=== PATIENT | female | born 1965 | race Caucasian/White ===

== ENCOUNTER 2019-08-19 09:46 | Inpatient (IN) ==
[2019-08-19 10:22] LABS: Hemoglobin 15.2 gm/dL (12.5-16.0); Mean Cell Volume 93.8 fl (78-100); Mean Corpuscular Hemoglobin 31.7 pg (27-31); Mean Corpuscular Hgb Conc 33.8 g/dl (32-36); Mean Platelet Volume 10.1 fl (8-12.5); Neutrophil # 5.5 K/mm3 (1.3-6.0); Neutrophil % 69.3 % (42-75.0); Platelet Count 264 K/mm3 (150-450); Red Cell Distribution Width 12.9 % (11.5-14.0)
[2019-08-19] MEDS ORDERED: ENOXAPARIN SODIUM 100 MG/ML SYRG SC ONE ×2 (10:36→10:42)
[2019-08-19 10:40] LABS: INR 1.12 INR (0.92-1.08); Partial Thrombolplastin Time 22.5 Seconds (24-32)
[2019-08-19] MEDS ORDERED: ENOXAPARIN SODIUM 30 MG/0.3 ML SYRG SC ONE (10:42)
[2019-08-19] MEDS ORDERED: WARFARIN SODIUM 10 MG TABLET PO ONE (10:45)
[2019-08-19 10:46] LABS: Troponin I Less than 0.017 ng/mL (0.00-0.10)
[2019-08-19 10:48] LABS: ALT 10 U/L (19-67); AST 17 U/L (0-48); Albumin * 3.7 gm/dl (3.4-5.0); Alkaline Phosphatase * 60 U/L (50-170); Anion Gap 15.3 mmol/L (6.8-13.8); BNP * 126 pg/mL (5-205); BUN/Creatinine Ratio 31.9 (9.0-21.6); Bilirubin, Total 0.6 mg/dL (0.0-1.1); Blood Urea Nitrogen 53 mg/dL (3-23); Calcium * 9.1 mg/dL (7.9-10.9); Carbon Dioxide 29.1 mmol/L (24-32.6); Chloride 96 mmol/L (97-106); Glucose * 156 mg/dL (70-110); Potassium 3.4 mmol/L (3.4-4.6); Sodium 137 mmol/L (132-142); Total Protein 8.4 gm/dL (6.2-8.2)
--- NOTE | 2019-08-19 11:01 | ERNOTE ---
Dyspnea - General Presenting Symptoms: shortness of breath Time Seen by Provider: 08/19/19 10:24 Source: patient Exam Limitations: no limitations - Immun/Allergies/Home Medications Immunizations: IMMUNIZATION HX Immunizations Up to Date No History of Influenza Vaccine Yes Hx Pneumococcal Vaccination No Allergies/Adverse Reactions: Allergies acetaminophen [From Vicodin] Allergy (Severe, Verified 08/19/19 10:04) Anaphylaxis, stops breathing hydrocodone bitartrate [From Vicodin] Allergy (Severe, Verified 08/19/19 10:04) Anaphylaxis, stops breathing aspirin Allergy (Intermediate, Verified 08/19/19 10:04) HIVES, FACE SWELLS, HIGH FEVER vancomycin Allergy (Mild, Verified 08/19/19 10:04) Hives duloxetine Adverse Reaction (Mild, Verified 08/19/19 10:04) SORES IN MOUTH, STOMACH PAIN Home Medications: HOME MEDICATIONS Sertraline HCl [Zoloft] 100 mg PO DAILY 10/27/12 [Last Taken 08/19/19] Colestipol HCl [Colestid] 1 g PO DAILY 05/29/15 [Last Taken 11/12/16] Diclofenac Sodium 75 mg PO BID 05/29/15 [Last Taken 08/19/19] Gabapentin 300 mg PO TID 05/29/15 [Last Taken 08/19/19] Omeprazole [Prilosec] 20 mg PO DAILY PRN 05/29/15 [Last Taken 11/12/16] Baclofen 20 mg PO HS 11/06/16 [Last Taken 08/18/19] Cholecalciferol [Vitamin D] 1,000 unit PO HS 11/06/16 [Last Taken 11/12/16] Cyanocobalamin (Vitamin B-12) [Vitamin B-12] 500 mcg PO HS 11/06/16 [Last Taken 11/12/16] Fexofenadine HCl [Kylah Allergy] 180 mg PO DAILY PRN 11/06/16 [Last Taken 11/12/16] Levothyroxine Sodium [Synthroid] 150 mcg PO DAILY 11/06/16 [Last Taken 08/19/19] Furosemide [Lasix] 40 mg PO DAILY 08/19/19 [Last Taken 08/19/19] Metoprolol Succinate 75 mg PO HS 08/19/19 [Last Taken Unknown] - History of Present Illness Narrative: Patient has been having shortness of breath for the past several weeks and underwent a variety of tests including an echocardiogram, a NANCY and a CTA of the chest today. Severity: moderate Initiating event: Reports: none Frequency of episodes: Reports: no prior episodes Modifying Factors - (Improves): Reports: nothing Modifying Factors (Worsens): Reports: activity Associated Symptoms-Dyspnea: Reports: denies symptoms Prior Treatment: Reports: recently seen, treated by physician Review of Systems - Review of Systems Constitutional: Present: See HPI EYE: Present: no symptoms reported ENT: Present: no symptoms reported Respiratory: Present: See HPI Cardiology: Present: no symptoms reported Gastrointestinal/Abdominal: Present: no symptoms reported Genitourinary: Present: no symptoms reported Musculoskeletal: Present: no symptoms reported Skin: Present: no symptoms reported Neurological: Present: no symptoms reported Endocrine: Present: no symptoms reported Hematologic/Lymphatic: Present: no symptoms reported Psych: Present: no symptoms reported Medical History (Updated 08/19/19 @ 10:04 by Nina Gilliland RN) Pulmonary embolism 08/19/2019 ADD (attention deficit disorder) Onset Date: Unknown Allergic rhinitis Onset Date: Unknown CHF (congestive heart failure) Onset Date: Unknown Cervical disc disorder with radiculopathy Onset Date: Unknown mid cervical region Chest pain Onset Date: Unknown Depression Onset Date: Unknown Essential hypertension Onset Date: Unknown Fibromyalgia Onset Date: Unknown Hyperlipidemia Onset Date: Unknown Hypothyroidism Onset Date: Unknown Incomplete tear of right rotator cuff Onset Date: 02/02/17 Joint pain Onset Date: Unknown Left ventricular hypertrophy Onset Date: Unknown Lumbago with sciatica, unspecified side Onset Date: Unknown Obesity Onset Date: Unknown Obstructive sleep apnea Onset Date: Unknown Osteoarthritis Onset Date: Unknown Palpitations Onset Date: Unknown Peripheral edema Onset Date: Unknown Plantar fasciitis Onset Date: Unknown Rotator cuff tear, right Onset Date: 11/13/16 Shingles Onset Date: 09/2016 Surgical History: Surgical History (Updated 11/25/18 @ 09:06 by Luiza Sweeney) H/O abdominal hysterectomy Onset Date: 06/1995 H/O section Onset Date: 08/1993, 08/1991, 08/1993 H/O colonoscopy Onset Date: Unknown normal Dr Garcia History of repair of rotator cuff Onset Date: 11/13/16 arthroscopy with mini open Dr. Leggett, right History of total right knee replacement (TKR) Onset Date: 2011 Dr Tavares [facility] Hx laparoscopic cholecystectomy Onset Date: 03/30/00 Dr Ross Family History: Family History (Updated 10/12/18 @ 07:32 by Siomara Lord) Mother , age 80 Heart disease Hypertension Gout Glaucoma Aneurysm Arthritis Father , age 75 Hypertension Myocardial infarction Cancer lung Brother Alive and well Sister Brain tumor Sister CHF (congestive heart failure) Cancer ovarian Sister pre cancer cervix Aunt Diabetes Uncle Diabetes Social History: (Last Reviewed 08/19/19 @ 10:04 by Nina Gilliland RN) Social History: Marital status: household members: spouse 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 Service: No Tobacco: Smoking Status: Never smoker Alcohol: alcohol intake: current details: rarely Substance Use: substance use type: does not use Dietary Habits: caffeine: Yes caffeine comment: sodas 2 per week, 1 cup coffee Type: carbonated beverages, coffee Physical Exam - Physical Exam General Appearance: Present: wd/wn, alert, mild distress Head Exam: Present: normal inspection, no evidence of injury Eye Exam: Normal inspection: bilateral, PERRL: bilateral Ears, Nose, Throat: Present: normal ENT inspection, H, normal pharynx Neck: Present: normal inspection, nontender Respiratory: Present: normal breath sounds, no accessory muscle use, chest nontender, lungs clear, respiratory distress Cardiovascular/Chest: Present: no murmur, normal peripheral pulses, bradycardia Gastrointestinal/Abdominal: Present: normal bowel sounds, nontender, nondistended, soft, no organomegaly Rectal Exam: Present: deferred Back Exam: Present: normal inspection, normal range of motion Extremity Exam: Present: normal inspection, non-tender, no edema, normal range of motion Neurological Exam: Present: alert, oriented, normal mood/affect Skin Exam: Present: normal color, warm/dry Lymphatic Exam: Present: no adenopathy Progress - Results and Orders Patient's Lab Results:: I have reviewed the patient's lab results. - Vital Signs Patient's Vital Signs:: I have reviewed the patient's vital signs. Vital Signs: Vital Signs 08/19/19 09:59 08/19/19 10:10 Temperature 36.7 C Pulse Rate 50 L 49 L Respiratory Rate 13 15 Blood Pressure 129/46 105/47 O2 Sat by Pulse Oximetry 95 95 - CT/Ultrasound CT/Ultrasound Narrative: CTA of the chest was reviewed by me - Progress/Reassessment Chief Complaint: Dyspnea - Transfer of Care Expected Disposition: Admit Plan - Plan Plan: Fortunately the patient is already undergone both an echocardiogram and a NANCY of the chest. Patient will be admitted to an observation bed so we can get her anticoagulated. Dr. Finn is agreed to admit the patient to an overnight bed. Departure Clinical Impression: Pulmonary embolus Qualifiers: Pulmonary embolism type: unspecified Chronicity: acute Acute cor pulmonale presence: without acute cor pulmonale Qualified Code(s): I26.99 - Other pulmonary embolism without acute cor pulmonale - Departure Disposition: Still a patient Condition: Fair Referrals: Eva Shine, JUNIOR ART DIRECTOR [Primary Care Provider] -
[2019-08-19] MEDS ORDERED: LORATADINE 10 MG TABLET PO PRN (14:00)
[2019-08-19] MEDS ORDERED: PANTOPRAZOLE SODIUM 20 MG TABLET.DR PO PRN (14:00)
[2019-08-19] MEDS ORDERED: ENOXAPARIN SODIUM 40 MG/0.4 ML SYRG SC SCH ×2 (14:15→22:45)
--- NOTE | 2019-08-19 14:42 | HP ---
Chief Complaint - Chief Complaint Date of Service: 08/19/19 Time of Service: 13:45 Chief Complaint: multiple pulmonary emboli, dyspnea at rest, O2 dependency, worsing renal failure History of Present Illness: Jessica Brand is a 53-year-old morbidly obese female who presented to the ER with dyspnea at rest. She was diagnosed with multiple PE per CT chest with PE protocol. She has had a left lower extremity venous Doppler done 3 days ago which did show some clot in the gastrocnemius vein but no DVT otherwise. She has had tenderness in the calf and in the left medial distal thigh in the area of the greater saphenous vein. Homans is positive. She is much more comfortable since being placed on oxygen. There is been some slight worsening of her renal status. There is no evidence of infection. She had been placed on levofloxacin. There is no indication of infection so it will be discontinued. She is also on diclofenac for arthritis and that also will be held. She arrives much more comfortable being on oxygen. Medical History (Updated 08/19/19 @ 11:01 by Rai Fox DO) Pulmonary embolism 08/19/2019 ADD (attention deficit disorder) Onset Date: Unknown Allergic rhinitis Onset Date: Unknown CHF (congestive heart failure) Onset Date: Unknown Cervical disc disorder with radiculopathy Onset Date: Unknown mid cervical region Chest pain Onset Date: Unknown Depression Onset Date: Unknown Essential hypertension Onset Date: Unknown Fibromyalgia Onset Date: Unknown Hyperlipidemia Onset Date: Unknown Hypothyroidism Onset Date: Unknown Incomplete tear of right rotator cuff Onset Date: 02/02/17 Joint pain Onset Date: Unknown Left ventricular hypertrophy Onset Date: Unknown Lumbago with sciatica, unspecified side Onset Date: Unknown Obesity Onset Date: Unknown Obstructive sleep apnea Onset Date: Unknown Osteoarthritis Onset Date: Unknown Palpitations Onset Date: Unknown Peripheral edema Onset Date: Unknown Plantar fasciitis Onset Date: Unknown Rotator cuff tear, right Onset Date: 11/13/16 Shingles Onset Date: 09/2016 Surgical History: Surgical History (Updated 11/25/18 @ 09:06 by Luiza Sweeney) H/O abdominal hysterectomy Onset Date: 06/1995 H/O section Onset Date: 08/1993, 08/1991, 08/1993 H/O colonoscopy Onset Date: Unknown normal Dr Garcia History of repair of rotator cuff Onset Date: 11/13/16 arthroscopy with mini open Dr. Leggett, right History of total right knee replacement (TKR) Onset Date: 2011 Dr Tavares [facility] Hx laparoscopic cholecystectomy Onset Date: 03/30/00 Dr Ross Family History: Family History (Updated 10/12/18 @ 07:32 by Siomara Lord) Mother , age 80 Heart disease Hypertension Gout Glaucoma Aneurysm Arthritis Father , age 75 Hypertension Myocardial infarction Cancer lung Brother Alive and well Sister Brain tumor Sister CHF (congestive heart failure) Cancer ovarian Sister pre cancer cervix Aunt Diabetes Uncle Diabetes Social History: (Last Reviewed 08/19/19 @ 12:13 by Valeria Sawant RN) Social History: Marital status: household members: spouse 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 Service: No Tobacco: Smoking Status: Never smoker Alcohol: alcohol intake: current details: rarely Substance Use: substance use type: does not use Dietary Habits: caffeine: Yes caffeine comment: sodas 2 per week, 1 cup coffee Type: carbonated beverages, coffee Review Of Systems (GEN) - Review of Systems Generalized/Overall Review: Present: Malaise EENTM: Present: No Symptoms Reported Respiratory: Present: Shortness of Breath Cardiac: Present: No Symptoms Reported Abdominal: Present: No Symptoms Reported Genitourinary: Present: No Symptoms Reported Musculoskeletal: Present: No Symptoms Reported Neurological: Present: No Symptoms Reported Skin: Present: No Symptoms Reported Endocrine: Present: No Symptoms Reported Immunizations: IMMUNIZATION HX Immunizations Up to Date No History of Influenza Vaccine Yes Hx Pneumococcal Vaccination No Allergies/Adverse Reactions: Allergies Allergy/AdvReac Type Severity Reaction Status Date / Time acetaminophen [From Vicodin] Allergy Severe Anaphylaxis, Verified 08/19/19 12:13 stops breathing hydrocodone bitartrate Allergy Severe Anaphylaxis, Verified 08/19/19 12:13 [From Vicodin] stops breathing aspirin Allergy Intermediate HIVES, Verified 08/19/19 12:13 FACE SWELLS, HIGH FEVER vancomycin Allergy Mild Hives Verified 08/19/19 12:13 duloxetine AdvReac Mild SORES IN Verified 08/19/19 12:13 MOUTH, STOMACH PAIN Home Medications: HOME MEDICATIONS Sertraline HCl [Zoloft] 100 mg PO DAILY 10/27/12 [Last Taken 08/19/19] Colestipol HCl [Colestid] 1 g PO DAILY 05/29/15 [Last Taken 11/12/16] Diclofenac Sodium 75 mg PO BID 05/29/15 [Last Taken 08/19/19] Gabapentin 300 mg PO TID 05/29/15 [Last Taken 08/19/19] Omeprazole [Prilosec] 20 mg PO DAILY PRN 05/29/15 [Last Taken 11/12/16] Baclofen 20 mg PO HS 11/06/16 [Last Taken 08/18/19] Cholecalciferol [Vitamin D] 1,000 unit PO DAILY 11/06/16 [Last Taken 11/12/16] Cyanocobalamin (Vitamin B-12) [Vitamin B-12] 500 mcg PO DAILY 11/06/16 [Last Taken 11/12/16] Fexofenadine HCl [Kylah Allergy] 180 mg PO DAILY PRN 11/06/16 [Last Taken 11/12/16] Levothyroxine Sodium [Synthroid] 150 mcg PO DAILY 11/06/16 [Last Taken 08/19/19] Furosemide [Lasix] 40 mg PO DAILY 08/19/19 [Last Taken 08/19/19] Levofloxacin [Levaquin] PO DAILY 08/19/19 [Last Taken Unknown] Metoprolol Succinate 75 mg PO HS 08/19/19 [Last Taken Unknown] Exam - Exam Vital Signs: Vital Signs - Last Taken Temp 36.7 C 08/19/19 11:29 Pulse 49 L 08/19/19 11:29 Resp 14 08/19/19 11:29 BP 103/40 08/19/19 11:29 Pulse Ox 94 08/19/19 11:29 Constitutional: Present: Alert, Oriented x3, Cooperative, Mild distress, Morbidly obese ENT Exam: Present: normal ENT inspection Eye Exam: bilateral eye: normal inspection, PERRL, EOMI Neck: Present: full range of motion, supple, normal inspection Back Exam: Present: normal inspection, no CVA tenderness, decreased range of motion Respiratory: Present: chest non-tender, lungs clear, normal breath sounds, respiratory distress - On room air but much more comfortable on oxygen Cardiovascular/Chest: Present: normal peripheral pulses, regular rate, rhythm, no chest tenderness, no edema, no gallop, no JVD, no murmur, no rub Peripheral Pulses: carotid (R): 2+, carotid (L): 2+, femoral (R): 2+, femoral (L): 2+, dorsalis-pedis (R): 2+, dorsalis-pedis (L): 2+, radial (R): 2+, radial (L): 2+ Abdomen: Present: Normal bowel sounds, soft, nontender, obese /Rectal: Present: Exam deferred Extremity: Present: normal capillary refill, calf tenderness, leg pain - In the posterior medial aspect of the left thigh in the distal one half. It is palpably tender and ropiness is felt.. 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 as tested, normal cerebellar test, no motor/sensory deficits, alert, normal mood/affect, oriented x 3 Appearance: Present: appropriate appearance, appropriate insight, neat, no memory impairment Eye contact: Present: cooperative, good eye contact, normal speech Thoughts: Present: normal thought pattern, no apparent hallucination Diagnostic Studies: Abnormal Lab Results 08/19/19 08/19/19 08/19/19 Range/Units 10:15 10:15 10:25 MCH 31.7 H (27-31) pg PT 11.0 H (9.1-10.7) Seconds INR (Anticoag Therapy) 1.12 H (0.92-1.08) INR PTT (Vic) 22.5 L (24-32) Seconds Chloride 96 L (97-106) mmol/L Anion Gap 15.3 H (6.8-13.8) mmol/L BUN 53 H D (3-23) mg/dL Creatinine 1.66 H (0.4-1.4) mg/dL Est GFR (Non-Af Amer) 34 L D (60-130) mL/min BUN/Creatinine Ratio 31.9 H (9.0-21.6) Random Glucose 156 H (70-110) mg/dL ALT 10 L (19-67) U/L Total Protein 8.4 H (6.2-8.2) gm/dL Laboratory Results WBC 8.0 K/mm3 (4.0-10.5) 08/19/19 10:15 RBC 4.80 M/mm3 (4.2-5.4) 08/19/19 10:15 Hgb 15.2 gm/dL (12.5-16.0) 08/19/19 10:15 Hct 45.0 % (37.0-47.0) 08/19/19 10:15 MCV 93.8 fl (78-100) 08/19/19 10:15 MCH 31.7 pg (27-31) H 08/19/19 10:15 MCHC 33.8 g/dl (32-36) 08/19/19 10:15 RDW 12.9 % (11.5-14.0) 08/19/19 10:15 Plt Count 264 K/mm3 (150-450) 08/19/19 10:15 MPV 10.1 fl (8-12.5) 08/19/19 10:15 Immature Gran % (Auto) 0.30 % (0.001-0.429) 08/19/19 10:15 Immature Gran # (Auto) 0.02 K/mm3 (0.000-0.0310) 08/19/19 10:15 69.3 % (42-75.0) 08/19/19 10:15 24.0 % (20-51) 08/19/19 10:15 4.6 % (0.0-9) 08/19/19 10:15 1.3 % (0.0-3.0) 08/19/19 10:15 0.5 % (0.0-1.0) 08/19/19 10:15 Nucleated RBC % 0.0 k/mm3 (0-1) 08/19/19 10:15 5.5 K/mm3 (1.3-6.0) 08/19/19 10:15 1.91 k/mm3 (1.5-3.5) 08/19/19 10:15 0.4 k/mm3 (0.0-1.0) 08/19/19 10:15 0.1 k/mm3 (0.0-0.7) 08/19/19 10:15 Absolute Basophils 0.0 k/mm3 (0.0-0.1) 08/19/19 10:15 PT 11.0 Seconds (9.1-10.7) H 08/19/19 10:25 INR (Anticoag Therapy) 1.12 INR (0.92-1.08) H 08/19/19 10:25 PTT (Vic) 22.5 Seconds (24-32) L 08/19/19 10:25 Sodium 137 mmol/L (132-142) 08/19/19 10:15 138 mmol/L (130-142) 08/19/19 10:15 Potassium 3.4 mmol/L (3.4-4.6) 08/19/19 10:15 Chloride 96 mmol/L (97-106) L 08/19/19 10:15 Carbon Dioxide 29.1 mmol/L (24-32.6) 08/19/19 10:15 15.3 mmol/L (6.8-13.8) H 08/19/19 10:15 BUN 53 mg/dL (3-23) H D 08/19/19 10:15 1.66 mg/dL (0.4-1.4) H 08/19/19 10:15 Est GFR (Non-Af Amer) 34 mL/min (60-130) L D 08/19/19 10:15 31.9 (9.0-21.6) H 08/19/19 10:15 156 mg/dL (70-110) H 08/19/19 10:15 Calcium 9.1 mg/dL (7.9-10.9) 08/19/19 10:15 Calcium Adj for Albumin 9.0 mg/dL (8.4-10.2) 08/19/19 10:15 Magnesium 2.2 mg/dL (1.2-2.8) 08/19/19 10:25 0.6 mg/dL (0.0-1.1) 08/19/19 10:15 AST 17 U/L (0-48) 08/19/19 10:15 ALT 10 U/L (19-67) L 08/19/19 10:15 60 U/L (50-170) 08/19/19 10:15 Less than 0.017 ng/mL (0.00-0.10) 08/19/19 10:15 B-Natriuretic Peptide 126 pg/mL (5-205) 08/19/19 10:15 8.4 gm/dL (6.2-8.2) H 08/19/19 10:15 3.7 gm/dl (3.4-5.0) 08/19/19 10:15 Assessment/Plan - Narrative Narrative: 1. Enoxaparin 1 mg/kg. She will actually receive 120 mg twice daily and the next dose will be at 1045 this evening. 2. Establish Coumadin to a therapeutic INR with goal of 2.0-3.0. 3. Discontinue levofloxacin 4. Hold diclofenac 5. Morning lab to include CBC, CMP, PT and INR. 6. Continue oxygen for now but PT to start working on weaning off oxygen tomorrow morning. - Assessment/Plan (1) Multiple pulmonary emboli Problem: Acute (2) Thrombophlebitis of left lower extremity Problem: Acute (3) Dyspnea Problem: Acute Qualifiers: Dyspnea type: shortness of breath Qualified Code(s): R06.02 - Shortness of breath; R06.00 - Dyspnea, unspecified; R06.01 - Orthopnea (4) Renal insufficiency Problem: Acute (5) Morbid obesity Problem: Chronic
[2019-08-19] MEDS: GABAPENTIN 300 MG CAPSULE PO SCH (16:54)
[2019-08-19] MEDS ORDERED: ACETAMINOPHEN 500 MG TABLET PO PRN ×2 (19:29→20:18)
[2019-08-19] MEDS ORDERED: ACETAMINOPHEN 500 MG TABLET PO ONE (20:16)
[2019-08-19] MEDS: METOPROLOL SUCCINATE 25 MG TABLET.SA PO SCH (20:45)
[2019-08-19] MEDS: BACLOFEN 10 MG TABLET PO SCH (20:45)
[2019-08-19] MEDS: ENOXAPARIN SODIUM SC SCH ×2 (23:04)
[2019-08-20 05:50] LABS: Hematocrit 45.8 % (37.0-47.0); Hemoglobin 15.1 gm/dL (12.5-16.0); Mean Cell Volume 94.4 fl (78-100); Mean Corpuscular Hemoglobin 31.1 pg (27-31); Mean Platelet Volume 10.3 fl (8-12.5); Neutrophil # 4.4 K/mm3 (1.3-6.0); Neutrophil % 45.6 % (42-75.0); Platelet Count 264 K/mm3 (150-450); Red Blood Count 4.85 M/mm3 (4.2-5.4); Red Cell Distribution Width 12.9 % (11.5-14.0); White Blood Count 9.5 K/mm3 (4.0-10.5)
[2019-08-20 05:58] LABS: Prothrombin Time (Patient) 11.7 Seconds (9.1-10.7)
[2019-08-20 06:06] LABS: Albumin * 3.6 gm/dl (3.4-5.0); Anion Gap 12.9 mmol/L (6.8-13.8); BUN/Creatinine Ratio 32.5 (9.0-21.6); Bilirubin, Total 0.5 mg/dL (0.0-1.1); Ca. Corrected For Albumin 9.1 mg/dL (8.4-10.2); Calcium * 9.1 mg/dL (7.9-10.9); Potassium 2.9 mmol/L (3.4-4.6); Total Protein 8.2 gm/dL (6.2-8.2)
[2019-08-20 06:18] LABS: INR 1.19 INR (0.92-1.08)
[2019-08-20] MEDS: LEVOTHYROXINE SODIUM 150 MCG TABLET PO SCH (07:02)
[2019-08-20] MEDS ORDERED: WARFARIN SODIUM 5 MG TABLET PO ONE (08:15)
[2019-08-20] MEDS ORDERED: POTASSIUM CHLORIDE 20 MEQ TABLET.SA PO ONE (08:17)
[2019-08-20] MEDS: POTASSIUM CHLORIDE 10 MEQ TABLET.SA PO SCH ×2 (09:19→18:37)
[2019-08-20] MEDS: SERTRALINE HCL 100 MG TABLET PO SCH (09:19)
[2019-08-20] MEDS: SPIRONOLACTONE 25 MG TABLET PO SCH (09:19)
[2019-08-20] MEDS: COLESTIPOL HCL 1 G TABLET PO SCH (09:20)
[2019-08-20] MEDS: FUROSEMIDE 40 MG TABLET PO SCH (09:20)
[2019-08-20] MEDS: CHOLECALCIFEROL 1,000 UNIT CAPSULE PO SCH (09:20)
[2019-08-20] MEDS: CYANOCOBALAMIN 1,000 MCG TABLET PO SCH (09:20)
[2019-08-20] MEDS: GABAPENTIN 300 MG CAPSULE PO SCH ×3 (09:20→18:37)
[2019-08-20] MEDS: ENOXAPARIN SODIUM SC SCH ×4 (10:45→22:05)
--- NOTE | 2019-08-20 10:47 | PN ---
Subjective - Date and Time Seen Date: 08/20/19 Time: 08:30 Subjective Narrative: Jessica Brand has had an uneventful night. She rested well on oxygen. She has not been successful in weaning off of her oxygen and desats to 88% on room air just sitting. Respiratory therapy will work with her to help wean her off of her oxygen. Her INR is only 1.2 this morning and so I will give her another 5 mg of warfarin this morning and then repeat that again this evening. In the meantime, she is getting Lovenox 120 mg subcu twice daily. She reports coughing and now starting to produce some green sputum. She will need a sputum for culture and sensitivity collected. Objective - Review of Systems Generalized/Overall Review: Reports: Weakness EENTM: Reports: No Symptoms Reported Respiratory: Reports: Cough Cardiac: Reports: No Symptoms Reported Abdominal: Reports: No Symptoms Reported Genitourinary Symptoms: Reports: No Symptoms Reported Musculoskeletal Complaints: Reports: Muscle Pain - In the left gastrocnemius and posterior medial left distal thigh Neurological: Reports: No Symptoms Reported Skin: Reports: No Symptoms Reported Endocrine: Reports: No Symptoms Reported - Vitals Vitals: Last Vital Signs Temp 36.3 C 08/20/19 10:25 Pulse 46 L 08/20/19 10:25 Resp 16 08/20/19 10:25 BP 119/65 08/20/19 10:25 Pulse Ox 97 08/20/19 10:25 - Abnormal Lab Findings Abnormal Lab Findings: Abnormal Lab Results 08/19/19 08/19/19 08/20/19 Range/Units 10:15 10:25 05:47 MCH 31.1 H (27-31) pg Lymphocytes # 4.08 H (1.5-3.5) k/mm3 PT 11.0 H (9.1-10.7) Seconds INR (Anticoag Therapy) 1.12 H (0.92-1.08) INR PTT ([place]) 22.5 L (24-32) Seconds Potassium (3.4-4.6) mmol/L Chloride 96 L (97-106) mmol/L Carbon Dioxide (24-32.6) mmol/L Anion Gap 15.3 H (6.8-13.8) mmol/L BUN 53 H D (3-23) mg/dL Creatinine 1.66 H (0.4-1.4) mg/dL Est GFR (Non-Af Amer) 34 L D (60-130) mL/min BUN/Creatinine Ratio 31.9 H (9.0-21.6) Random Glucose 156 H (70-110) mg/dL AST (0-48) U/L ALT 10 L (19-67) U/L Total Protein 8.4 H (6.2-8.2) gm/dL 08/20/19 08/20/19 Range/Units 05:47 05:47 MCH (27-31) pg Lymphocytes # (1.5-3.5) k/mm3 PT 11.7 H (9.1-10.7) Seconds INR (Anticoag Therapy) 1.19 H (0.92-1.08) INR PTT (Vic) (24-32) Seconds Potassium 2.9 L (3.4-4.6) mmol/L Chloride (97-106) mmol/L Carbon Dioxide 33.0 H (24-32.6) mmol/L Anion Gap (6.8-13.8) mmol/L BUN 40 H (3-23) mg/dL Creatinine (0.4-1.4) mg/dL Est GFR (Non-Af Amer) 48 L D (60-130) mL/min BUN/Creatinine Ratio 32.5 H (9.0-21.6) Random Glucose (70-110) mg/dL AST 60 H (0-48) U/L ALT 14 L (19-67) U/L Total Protein (6.2-8.2) gm/dL - EKG/Xray Findings XRAY: chest Interpretation: Reviewed by me - Exam Constitutional: Present: Alert, Oriented x3, Cooperative, Well developed, Well nourished, Morbidly obese ENT Exam: Present: normal ENT inspection, hearing grossly normal, pharynx normal, TMs normal Neck: Present: non-tender, full range of motion, supple Breasts: Present: Exam deferred Respiratory: Present: chest non-tender, lungs clear, normal breath sounds, no respiratory distress, no accessory muscle use - While on oxygen. She does become labored when on room air. 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 Give additional dose of Coumadin 5 mg this morning and repeat again this evening 2. Repeat morning lab with CBC, CMP, PT/INR 3. Continue to try to wean from supplemental oxygen. 4. Start back on potassium as it is down to 2.7 this morning and was 3.4 yesterday. - Problems/Diagnosis (1) Multiple pulmonary emboli Problem: Acute (2) Thrombophlebitis of left lower extremity Problem: Acute (3) Dyspnea Problem: Acute Qualifiers: Dyspnea type: shortness of breath Qualified Code(s): R06.02 - Shortness of breath; R06.00 - Dyspnea, unspecified; R06.01 - Orthopnea (4) Renal insufficiency Problem: Acute (5) Morbid obesity Problem: Chronic (6) Hypokalemia Problem: Acute
[2019-08-20 13:07] LABS: Anion Gap 15.2 mmol/L (6.8-13.8); BUN/Creatinine Ratio 31.4 (9.0-21.6); Calcium * 9.4 mg/dL (7.9-10.9); Carbon Dioxide 30.9 mmol/L (24-32.6); Estimated Creat Clear 48.5; Potassium 3.1 mmol/L (3.4-4.6)
[2019-08-20] MEDS ORDERED: WARFARIN SODIUM 5 MG TABLET PO SCH (17:00)
[2019-08-20] MEDS ORDERED: ONDANSETRON 8 MG TAB.RAPDIS PO PRN (17:44)
[2019-08-20] MEDS ORDERED: ONDANSETRON 4 MG TAB.RAPDIS ONE (18:05)
[2019-08-20] MEDS: BACLOFEN 10 MG TABLET PO SCH (20:00)
[2019-08-20] MEDS: METOPROLOL SUCCINATE 25 MG TABLET.SA PO SCH (20:00)
[2019-08-21 06:33] LABS: INR 1.33 INR (0.92-1.08)
[2019-08-21] MEDS: LEVOTHYROXINE SODIUM 150 MCG TABLET PO SCH (06:55)
[2019-08-21] MEDS: COLESTIPOL HCL 1 G TABLET PO SCH (08:58)
[2019-08-21] MEDS: POTASSIUM CHLORIDE 10 MEQ TABLET.SA PO SCH (08:58)
[2019-08-21] MEDS: FUROSEMIDE 40 MG TABLET PO SCH (08:58)
[2019-08-21] MEDS: GABAPENTIN 300 MG CAPSULE PO SCH ×2 (08:58→13:25)
[2019-08-21] MEDS: SERTRALINE HCL 100 MG TABLET PO SCH (09:01)
[2019-08-21] MEDS: CYANOCOBALAMIN 1,000 MCG TABLET PO SCH (09:02)
[2019-08-21] MEDS: SPIRONOLACTONE 25 MG TABLET PO SCH (09:02)
[2019-08-21] MEDS: CHOLECALCIFEROL 1,000 UNIT CAPSULE PO SCH (09:03)
[2019-08-21] MEDS: ENOXAPARIN SODIUM SC SCH ×2 (10:49)
[2019-08-21] MEDS ORDERED: WARFARIN SODIUM 5 MG TABLET PO ONE (11:04)
--- NOTE | 2019-08-21 14:03 | DS ---
(1) Multiple pulmonary emboli Problem: Acute (2) Thrombophlebitis of left lower extremity Problem: Acute (3) Dyspnea Problem: Acute Qualifiers: Dyspnea type: shortness of breath Qualified Code(s): R06.02 - Shortness of breath; R06.00 - Dyspnea, unspecified; R06.01 - Orthopnea (4) Renal insufficiency Problem: Acute (5) Morbid obesity Problem: Chronic (6) Hypokalemia Problem: Acute Date of Discharge:: 08/21/19 Description of Stay: Jessica Brand is a 53-year-old female who is admitted to the hospital with marked shortness of breath after having been diagnosed with multiple pulmonary emboli. She was placed on enoxaparin 120 mg twice daily and started on Coumadin. She had received 10 mg in the emergency room and then another 10 mg yesterday and 5 mg this morning. The INR is only 1.39 this morning so I gave her an extra dose of the 5 mg strength. There have been no other complications. She had been very dyspneic just sitting up in bed or dangling at the edge of the bed on admission. Yesterday she was still D satting on room air to less than 88%. Today she has been weaned off of oxygen and at rest her oxygen levels are in the mid 90s. She walked full length of the ly and back and was starting to get short of breath at the time that she returned to her room and her oxygen saturation only dropped to 88% on room air. She is improving and probably has improved enough that she can go home now. Procedures Performed: none Results and Findings: Pending Mircobiology Results 08/20/19 15:00 Expectorate Sputum Sputum Culture - Preliminary No Pathogens Isolated Lab Pending Results 08/19/19 10:15: WBC 8.0, RBC 4.80, Hgb 15.2, Hct 45.0, MCV 93.8, MCH 31.7 H, MC HC 33.8, RDW 12.9, Plt Count 264, MPV 10.1, Immature Gran % (Auto) 0.30, Immature Gran # (Auto) 0.02, Neutrophils % 69.3, Lymphocytes % 24.0, Monocytes % 4.6, Eosinophils % 1.3, Basophils % 0.5, Nucleated RBC % 0.0, Neutrophils # 5.5, Lymphocytes # 1.91, Monocytes # 0.4, Eosinophils # 0.1, Absolute Basophils 0.0 08/19/19 10:15: Sodium 137, Plasma Sodium 138, Potassium 3.4, Chloride 96 L, Carbon Dioxide 29.1, Anion Gap 15.3 H, BUN 53 H D, Creatinine 1.66 H, Est GFR (Non-Af Amer) 34 L D, BUN/Creatinine Ratio 31.9 H, Random Glucose 156 H, Calcium 9.1, Calcium Adj for Albumin 9.0, Total Bilirubin 0.6, AST 17, ALT 10 L, Alkaline Phosphatase 60, Troponin I Less than 0.017, B-Natriuretic Peptide 126, Total Protein 8.4 H, Albumin 3.7 08/19/19 10:25: PT 11.0 H, INR (Anticoag Therapy) 1.12 H, PTT ([place]) 22.5 L 08/19/19 10:25: Magnesium 2.2 08/20/19 05:47: WBC 9.5, RBC 4.85, Hgb 15.1, Hct 45.8, MCV 94.4, MCH 31.1 H, MCHC 33.0, RDW 12.9, Plt Count 264, MPV 10.3, Immature Gran % (Auto) 0.20, Immature Gran # (Auto) 0.02, Neutrophils % 45.6, Lymphocytes % 42.8, Monocytes % 8.2, Eosinophils % 2.7, Basophils % 0.5, Nucleated RBC % 0.0, Neutrophils # 4.4, Lymphocytes # 4.08 H, Monocytes # 0.8, Eosinophils # 0.3, Absolute Basophils 0.1 08/20/19 05:47: PT 11.7 H, INR (Anticoag Therapy) 1.19 H 08/20/19 05:47: Sodium 141, Plasma Sodium 141, Potassium 2.9 L, Chloride 98, Carbon Dioxide 33.0 H, Anion Gap 12.9, BUN 40 H, Creatinine 1.23, Est GFR (Non- Af Amer) 48 L D, BUN/Creatinine Ratio 32.5 H, Random Glucose 107 D, Calcium 9.1, Calcium Adj for Albumin 9.1, Total Bilirubin 0.5, AST 60 H, ALT 14 L, Alkaline Phosphatase 59, Total Protein 8.2, Albumin 3.6 08/20/19 12:50: Sodium 139, Plasma Sodium 140, Potassium 3.1 L, Chloride 96 L, Carbon Dioxide 30.9, Anion Gap 15.2 H, BUN 37 H, Creatinine 1.18, Est GFR (Non- Af Amer) 51 L, BUN/Creatinine Ratio 31.4 H, Random Glucose 154 H D, Calcium 9.4 08/21/19 06:23: PT 13.0 H, INR (Anticoag Therapy) 1.33 H Discharge Location: Home Disposition: Home self-care Condition: Fair Face to Face Encounter completed per [facility] Guidelines: No Discharge Activity: Activity as tolerated Discharge Diet: General/regular food Referrals: Eva Shine, BHAVIK [Primary Care Provider] - Complete Home Medications List: Complete Home Medication List: Sertraline HCl [Zoloft] 100 mg PO DAILY 10/27/12 Colestipol HCl [Colestid] 1 g PO DAILY 05/29/15 Gabapentin 300 mg PO TID 05/29/15 Omeprazole [Prilosec] 20 mg PO DAILY PRN 05/29/15 Baclofen 20 mg PO HS 11/06/16 Cholecalciferol [Vitamin D] 1,000 unit PO DAILY 11/06/16 Cyanocobalamin (Vitamin B-12) [Vitamin B-12] 500 mcg PO DAILY 11/06/16 Fexofenadine HCl [Kylah Allergy] 180 mg PO DAILY PRN 11/06/16 Levothyroxine Sodium [Synthroid] 150 mcg PO DAILY 11/06/16 Furosemide [Lasix] 40 mg PO DAILY 08/19/19 Metoprolol Succinate 75 mg PO HS 08/19/19 Acetaminophen [Tylenol] 500 mg PO Q4H PRN tablet 08/21/19 Ondansetron [Zofran Odt] 8 mg PO Q6H PRN #30 tab.rapdis 08/21/19 Potassium Chloride [Klor-Con 10] 10 meq PO BIDWM #30 tablet.sa 08/21/19 Spironolactone [Aldactone] 50 mg PO DAILY #30 tab 08/21/19 Warfarin Sodium [Jantoven] 7.5 mg PO DAILY #14 tab 08/21/19
[2019-08-21 15:08] VITALS: BP 114/63
== END 2019-08-21 15:00 | disposition home or self-care (01) | DRG 176 ==
LOC: ER 09:46 → MS 09:46 → OBSVTOIN 11:16 → MS 11:45
PROVIDERS: ADMIT Family Medicine; ATTEND Family Medicine
DX: I10 Essential (primary) hypertension; R06.00 Dyspnea, unspecified; E66.01 Morbid (severe) obesity due to excess calories; F32.9 Major depressive disorder, single episode, unspecified; I82.4Y2 Acute embolism and thrombosis of unspecified deep veins of left proximal lower extremity; I26.99 Other pulmonary embolism without acute cor pulmonale; G47.33 Obstructive sleep apnea (adult) (pediatric); E87.6 Hypokalemia; N28.9 Disorder of kidney and ureter, unspecified; Z68.42 Body mass index [BMI] 45.0-49.9, adult; E03.9 Hypothyroidism, unspecified
CPT/HCPCS: 36415; 80048; 80053; 83519; 83735; 83880; 84484; 85025; 85610; 85730; 87070; 93005; 94660; 94760; 96372; 99285; G0378

== ENCOUNTER 2019-08-24 11:22 | Observation (INO) ==
[2019-08-24] MEDS ORDERED: ENOXAPARIN SODIUM 100 MG/ML SYRG SC ONE (12:05)
[2019-08-24] MEDS ORDERED: ENOXAPARIN SODIUM 30 MG/0.3 ML SYRG SC ONE (12:07)
[2019-08-24 12:08] LABS: Hematocrit 42.6 % (37.0-47.0); Hemoglobin 14.1 gm/dL (12.5-16.0); Mean Cell Volume 96.2 fl (78-100); Mean Corpuscular Hemoglobin 31.8 pg (27-31); Mean Corpuscular Hgb Conc 33.1 g/dl (32-36); Mean Platelet Volume 10.1 fl (8-12.5); Neutrophil # 4.7 K/mm3 (1.3-6.0); Neutrophil % 52.9 % (42-75.0); Platelet Count 269 K/mm3 (150-450); Red Blood Count 4.43 M/mm3 (4.2-5.4); Red Cell Distribution Width 13.2 % (11.5-14.0); White Blood Count 8.8 K/mm3 (4.0-10.5)
[2019-08-24 12:13] LABS: Prothrombin Time (Patient) 15.4 Seconds (9.1-10.7)
[2019-08-24 12:14] LABS: INR 1.58 INR (0.92-1.08)
[2019-08-24 12:15] LABS: Partial Thrombolplastin Time 28.8 Seconds (24-32)
[2019-08-24 12:21] LABS: Albumin * 3.4 gm/dl (3.4-5.0); Anion Gap 11.6 mmol/L (6.8-13.8); BUN/Creatinine Ratio 20.5 (9.0-21.6); Bilirubin, Total 0.4 mg/dL (0.0-1.1); Calcium * 8.8 mg/dL (7.9-10.9); Carbon Dioxide 31.4 mmol/L (24-32.6); Total Protein 7.9 gm/dL (6.2-8.2)
--- NOTE | 2019-08-24 12:31 | ERNOTE ---
Dyspnea - Date Date of Service: 08/24/19 - General Presenting Symptoms: shortness of breath Time Seen by Provider: 08/24/19 11:38 Source: patient, RN notes reviewed, old records Exam Limitations: no limitations - Immun/Allergies/Home Medications Immunizations: IMMUNIZATION HX Immunizations Up to Date No History of Influenza Vaccine Yes Hx Pneumococcal Vaccination No Allergies/Adverse Reactions: Allergies acetaminophen [From Vicodin] Allergy (Severe, Verified 08/24/19 11:36) Anaphylaxis, stops breathing hydrocodone bitartrate [From Vicodin] Allergy (Severe, Verified 08/24/19 11:36) Anaphylaxis, stops breathing aspirin Allergy (Intermediate, Verified 08/24/19 11:36) HIVES, FACE SWELLS, HIGH FEVER vancomycin Allergy (Mild, Verified 08/24/19 11:36) Hives duloxetine Adverse Reaction (Mild, Verified 08/24/19 11:36) SORES IN MOUTH, STOMACH PAIN Home Medications: HOME MEDICATIONS Sertraline HCl [Zoloft] 100 mg PO DAILY 10/27/12 [Last Taken 08/19/19] Colestipol HCl [Colestid] 1 g PO DAILY 05/29/15 [Last Taken 11/12/16] Gabapentin 300 mg PO TID 05/29/15 [Last Taken 08/19/19] Omeprazole [Prilosec] 20 mg PO DAILY PRN 05/29/15 [Last Taken 11/12/16] Baclofen 20 mg PO HS 11/06/16 [Last Taken 08/18/19] Cholecalciferol [Vitamin D] 1,000 unit PO DAILY 11/06/16 [Last Taken 11/12/16] Cyanocobalamin (Vitamin B-12) [Vitamin B-12] 500 mcg PO DAILY 11/06/16 [Last Taken 11/12/16] Fexofenadine HCl [Kylah Allergy] 180 mg PO DAILY PRN 11/06/16 [Last Taken 11/12/16] Levothyroxine Sodium [Synthroid] 150 mcg PO DAILY 11/06/16 [Last Taken 08/19/19] Furosemide [Lasix] 40 mg PO DAILY 08/19/19 [Last Taken 08/19/19] Metoprolol Succinate 75 mg PO HS 08/19/19 [Last Taken Unknown] Acetaminophen [Tylenol] 500 mg PO Q4H PRN tab 08/21/19 [Last Taken Unknown] Ondansetron [Zofran Odt] 8 mg PO Q6H PRN #30 tab.rapdis 08/21/19 [Last Taken Unknown] Potassium Chloride [Klor-Con 10] 10 meq PO BIDWM #30 tablet.sa 08/21/19 [Last Taken Unknown] Spironolactone [Aldactone] 50 mg PO DAILY #30 tab 08/21/19 [Last Taken Unknown] Warfarin Sodium [Jantoven] 7.5 mg PO DAILY #14 tab 08/21/19 [Last Taken Unknown] - History of Present Illness Narrative: Michelle is a 53 year old female who returns to the ED for shortness of breath and worsening left leg pain after being discharged on 08/21. She has multiple bilateral pulmonary emboli. She as discharged on warfarin. Her INR was 1.55 yesterday. She was not sent home on Lovenox. She apparently did not want to give herself injections. Her CT scan indicated right heart strain when she was diagnosed with the pulmonary emboli on 08/19. She had already had an extensive work-up prior to this, including a NANCY. She has not been taking anything for pain and declines offered pain medication on initial exam. 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 Denies: fever/chills, chest pain/discomfort, palpitations, cough, dizziness Prior Treatment: Reports: recently seen, recently hospitalized Review of Systems - Review of Systems Constitutional: Absent: fever, chills EYE: Absent: eye pain, eye discharge ENT: Absent: ear pain, nose congestion, sore throat Respiratory: Present: shortness of breath. Absent: cough Cardiology: Absent: chest pain, edema Gastrointestinal/Abdominal: Absent: nausea, abdominal pain Genitourinary: Absent: dysuria, hematuria Musculoskeletal: Present: muscle pain. Absent: joint pain Skin: Absent: rash, lesions Neurological: Absent: headache, dizziness/light-headedness Endocrine: Present: no symptoms reported Hematologic/Lymphatic: Present: easy bruising, easy bleeding Psych: Present: no symptoms reported Medical History (Updated 08/24/19 @ 12:43 by Joanna Reynolds NP) ADD (attention deficit disorder) Onset Date: Unknown Allergic rhinitis Onset Date: Unknown CHF (congestive heart failure) Onset Date: Unknown Cervical disc disorder with radiculopathy Onset Date: Unknown mid cervical region Chest pain Onset Date: Unknown Depression Onset Date: Unknown Essential hypertension Onset Date: Unknown Fibromyalgia Onset Date: Unknown Hyperlipidemia Onset Date: Unknown Hypothyroidism Onset Date: Unknown Incomplete tear of right rotator cuff Onset Date: 02/02/17 Joint pain Onset Date: Unknown Left ventricular hypertrophy Onset Date: Unknown Lumbago with sciatica, unspecified side Onset Date: Unknown Obesity Onset Date: Unknown Obstructive sleep apnea Onset Date: Unknown Osteoarthritis Onset Date: Unknown Palpitations Onset Date: Unknown Peripheral edema Onset Date: Unknown Plantar fasciitis Onset Date: Unknown Pulmonary embolism 08/19/2019 Rotator cuff tear, right Onset Date: 11/13/16 Shingles Onset Date: 09/2016 Surgical History: Surgical History (Updated 08/19/19 @ 14:41 by Trino Finn DO) H/O abdominal hysterectomy Onset Date: 06/1995 H/O section Onset Date: 08/1993, 08/1991, 08/1993 H/O colonoscopy Onset Date: Unknown normal Dr Garcia History of repair of rotator cuff Onset Date: 11/13/16 arthroscopy with mini open Dr. Leggett, right History of total right knee replacement (TKR) Onset Date: 2011 Dr Taavres [facility] Hx laparoscopic cholecystectomy Onset Date: 03/30/00 Dr Ross Family History: Family History (Updated 10/12/18 @ 07:32 by Siomara Lord) Mother , age 80 Heart disease Hypertension Gout Glaucoma Aneurysm Arthritis Father , age 75 Hypertension Myocardial infarction Cancer lung Brother Alive and well Sister Brain tumor Sister CHF (congestive heart failure) Cancer ovarian Sister pre cancer cervix Aunt Diabetes Uncle Diabetes Social History: (Last Reviewed 08/24/19 @ 12:29 by Joanna Reynolds NP) Social History: Marital status: household members: spouse 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 Service: No Tobacco: Smoking Status: Never smoker Alcohol: alcohol intake: current details: rarely Substance Use: substance use type: does not use Dietary Habits: caffeine: Yes caffeine comment: sodas 2 per week, 1 cup coffee Type: carbonated beverages, coffee Physical Exam - Physical Exam General Appearance: Present: alert, mild distress, obese, cheerful Head Exam: Present: normal inspection Eye Exam: Normal inspection: bilateral Neck: Present: normal inspection, nontender, supple Respiratory: Present: lungs clear, decreased breath sounds - d/t large body habitus, other - mild dyspena at rest while speaking Cardiovascular/Chest: Present: no murmur, normal peripheral pulses, bradycardia Extremity Exam: Present: normal range of motion, no edema, calf tenderness - Le ft Neurological Exam: Present: alert, oriented, normal mood/affect, no motor/sensory deficits Skin Exam: Present: normal color, warm/dry Progress - Results and Orders Patient's Lab Results:: I have reviewed the patient's lab results. - Vital Signs Patient's Vital Signs:: I have reviewed the patient's vital signs. Vital Signs: Vital Signs 08/24/19 11:28 Temperature 36.3 C Pulse Rate 48 L Respiratory Rate 20 Blood Pressure 118/56 O2 Sat by Pulse Oximetry 93 - EKG EKG #1 EKG: other - Sinus mitchel, rate 51 EKG read: Reviewed by me - Progress/Reassessment Chief Complaint: Dyspnea Progress:: Unchanged Plan - Plan Plan: Oxygen saturation ranges from 89 to 93% at rest, heart rate continues to run in the 40's - likely d/t her metoprolol. INR was only 1.58. Lovenox 130 mg was given sub-q. Dr. Bonilla was contacted and the patient will be admitted to observation status for further treatment and monitoring. Departure Clinical Impression: Multiple pulmonary emboli, Failure of outpatient treatment - Departure Disposition: Still a patient Condition: Fair Referrals: Eva Shine, [employer] [Primary Care Provider] -
[2019-08-24] MEDS ORDERED: LORATADINE 10 MG TABLET PO PRN (13:15)
[2019-08-24] MEDS ORDERED: PANTOPRAZOLE SODIUM 20 MG TABLET.DR PO PRN (13:15)
[2019-08-24] MEDS ORDERED: ONDANSETRON 8 MG TAB.RAPDIS PO PRN (13:15)
[2019-08-24] MEDS ORDERED: ALBUTEROL SULFATE/IPRATROPIUM 3 ML NEBU IH ONE (13:18)
[2019-08-24] MEDS ORDERED: ALBUTEROL SULFATE/IPRATROPIUM 3 ML NEBU IH PRN (13:18)
[2019-08-24] MEDS: POTASSIUM CHLORIDE 10 MEQ TABLET.SA PO SCH (16:46)
[2019-08-24] MEDS: GABAPENTIN 300 MG CAPSULE PO SCH (16:46)
[2019-08-24] MEDS ORDERED: FLU VACC QS2019-20(6MOS UP)/PF 60 MCG/0.5 ML SYRINGE IM ONE (17:00)
[2019-08-24] MEDS ORDERED: WARFARIN SODIUM 7.5 MG TABLET PO SCH (17:00)
[2019-08-24] MEDS ORDERED: APIXABAN 5 MG TABLET PO ONE (17:30)
[2019-08-24] MEDS: ACETAMINOPHEN 500 MG TABLET PO PRN (18:32)
[2019-08-24] MEDS ORDERED: BACLOFEN 10 MG TABLET PO SCH (21:00)
--- NOTE | 2019-08-24 23:09 | HP ---
Chief Complaint - Chief Complaint Date of Service: 08/24/19 Time of Service: 16:30 Chief Complaint: Shortness of breath History of Present Illness: Michelle is a 53 yo female with recently diagnosed bilateral small, non- occlusive pulmonary embolisms. She was discharge to home in the last week with Coumadin, but did not want to take Lovenox shots. Her INR has been subtherapeutic since starting Coumadin and INR is 1.58 today. She presented to the [facility] ER today due to worsening shortness of breath. She denies chest pain, hemoptysis, fever, or chills. She denies leg pain or swelling. She has been taking her coumadin daily. No significant bleeding noted. In the ER her oxygen dropped to as low as 89% briefly but was mostly 90-91%. Medical History (Updated 08/24/19 @ 12:50 by Joanna Reynolds NP) ADD (attention deficit disorder) Onset Date: Unknown Allergic rhinitis Onset Date: Unknown CHF (congestive heart failure) Onset Date: Unknown Cervical disc disorder with radiculopathy Onset Date: Unknown mid cervical region Chest pain Onset Date: Unknown Depression Onset Date: Unknown Essential hypertension Onset Date: Unknown Fibromyalgia Onset Date: Unknown Hyperlipidemia Onset Date: Unknown Hypothyroidism Onset Date: Unknown Incomplete tear of right rotator cuff Onset Date: 02/02/17 Joint pain Onset Date: Unknown Left ventricular hypertrophy Onset Date: Unknown Lumbago with sciatica, unspecified side Onset Date: Unknown Obesity Onset Date: Unknown Obstructive sleep apnea Onset Date: Unknown Osteoarthritis Onset Date: Unknown Palpitations Onset Date: Unknown Peripheral edema Onset Date: Unknown Plantar fasciitis Onset Date: Unknown Pulmonary embolism 08/19/2019 Rotator cuff tear, right Onset Date: 11/13/16 Shingles Onset Date: 09/2016 Surgical History: Surgical History (Updated 08/19/19 @ 14:41 by Trino Finn DO) H/O abdominal hysterectomy Onset Date: 06/1995 H/O section Onset Date: 08/1993, 08/1991, 08/1993 H/O colonoscopy Onset Date: Unknown normal Dr Garcia History of repair of rotator cuff Onset Date: 11/13/16 arthroscopy with mini open Dr. Leggett, right History of total right knee replacement (TKR) Onset Date: 2011 Dr Tavares [facility] laparoscopic cholecystectomy Onset Date: 03/30/00 Dr Ross Family History: Family History (Updated 10/12/18 @ 07:32 by Siomara Lord) Mother , age 80 Heart disease Hypertension Gout Glaucoma Aneurysm Arthritis Father , age 75 Hypertension Myocardial infarction Cancer lung Brother Alive and well Sister Brain tumor Sister CHF (congestive heart failure) Cancer ovarian Sister pre cancer cervix Aunt Diabetes Uncle Diabetes Social History: (Last Reviewed 08/24/19 @ 13:28 by Aliza Licea RN) Social History: Marital status: household members: spouse 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 Absent: Cough Cardiac: Absent: Chest Pain, Edema, Palpitations Abdominal: Absent: Nausea, Vomiting Genitourinary: Present: No Symptoms Reported Musculoskeletal: Present: No Symptoms Reported Neurological: Present: No Symptoms Reported Skin: Present: No Symptoms Reported Endocrine: Present: No Symptoms Reported Immunizations: IMMUNIZATION HX Immunizations Up to Date No History of Influenza Vaccine Yes Hx Pneumococcal Vaccination No Allergies/Adverse Reactions: Allergies Allergy/AdvReac Type Severity Reaction Status Date / Time acetaminophen [From Vicodin] Allergy Severe Anaphylaxis, Verified 08/24/19 13:28 stops breathing hydrocodone bitartrate Allergy Severe Anaphylaxis, Verified 08/24/19 13:28 [From Vicodin] stops breathing aspirin Allergy Intermediate HIVES, Verified 08/24/19 13:28 FACE SWELLS, HIGH FEVER vancomycin Allergy Mild Hives Verified 08/24/19 13:28 duloxetine AdvReac Mild SORES IN Verified 08/24/19 13:28 MOUTH, STOMACH PAIN Home Medications: HOME MEDICATIONS Sertraline HCl [Zoloft] 100 mg PO DAILY 10/27/12 [Last Taken 08/19/19] Colestipol HCl [Colestid] 1 g PO DAILY 05/29/15 [Last Taken 11/12/16] Gabapentin 300 mg PO TID 05/29/15 [Last Taken 08/19/19] Omeprazole [Prilosec] 20 mg PO DAILY PRN 05/29/15 [Last Taken 11/12/16] Baclofen 20 mg PO HS 11/06/16 [Last Taken 08/18/19] Cholecalciferol [Vitamin D] 1,000 unit PO DAILY 11/06/16 [Last Taken 11/12/16] Cyanocobalamin (Vitamin B-12) [Vitamin B-12] 500 mg PO DAILY 11/06/16 [Last Taken 11/12/16] Fexofenadine HCl [Kylah Allergy] 180 mg PO DAILY PRN 11/06/16 [Last Taken 11/12/16] Levothyroxine Sodium [Synthroid] 150 mcg PO DAILY 11/06/16 [Last Taken 08/19/19] Furosemide [Lasix] 40 mg PO DAILY 08/19/19 [Last Taken 08/19/19] Metoprolol Succinate 75 mg PO HS 08/19/19 [Last Taken Unknown] Acetaminophen [Tylenol] 500 mg PO Q4H PRN tab 08/21/19 [Last Taken Unknown] Ondansetron [Zofran Odt] 8 mg PO Q6H PRN #30 tab.rapdis 08/21/19 [Last Taken Unknown] Potassium Chloride [Klor-Con 10] 10 meq PO BIDWM #30 tablet.sa 08/21/19 [Last Taken Unknown] Spironolactone [Aldactone] 50 mg PO DAILY #30 tab 08/21/19 [Last Taken Unknown] Warfarin Sodium [Jantoven] 7.5 mg PO DAILY #14 tab 08/21/19 [Last Taken Unknown] Exam - Exam Vital Signs: Vital Signs - Last Taken Temp 36.8 C 08/24/19 20:36 Pulse 59 L 08/24/19 21:33 Resp 18 08/24/19 21:33 BP 127/60 08/24/19 20:36 Pulse Ox 91 L 08/24/19 21:33 Constitutional: Present: Alert, Oriented x3, Cooperative ENT Exam: Present: hearing grossly normal Eye Exam: bilateral eye: normal inspection Respiratory: Present: lungs clear, normal breath sounds, no respiratory distress Cardiovascular/Chest: Present: regular rate, rhythm, no murmur Abdomen: Present: Normal bowel sounds, soft, nontender, nondistended Skin Exam: Present: normal color, warm/dry, no cyanosis Lymphatic: Present: no adenopathy Appearance: Present: appropriate appearance, appropriate insight Eye contact: Present: cooperative, good eye contact, normal speech Thoughts: Present: normal thought pattern, no apparent hallucination Diagnostic Studies: Abnormal Lab Results 08/24/19 08/24/19 08/24/19 Range/Units 11:58 11:58 11:58 MCH 31.8 H (27-31) pg PT 15.4 H (9.1-10.7) Seconds INR (Anticoag Therapy) 1.58 H (0.92-1.08) INR B-Natriuretic Peptide 242 H (5-205) pg/mL Laboratory Results WBC 8.8 K/mm3 (4.0-10.5) 08/24/19 11:58 RBC 4.43 M/mm3 (4.2-5.4) 08/24/19 11:58 Hgb 14.1 gm/dL (12.5-16.0) 08/24/19 11:58 Hct 42.6 % (37.0-47.0) 08/24/19 11:58 MCV 96.2 fl (78-100) 08/24/19 11:58 MCH 31.8 pg (27-31) H 08/24/19 11:58 MCHC 33.1 g/dl (32-36) 08/24/19 11:58 RDW 13.2 % (11.5-14.0) 08/24/19 11:58 Plt Count 269 K/mm3 (150-450) 08/24/19 11:58 MPV 10.1 fl (8-12.5) 08/24/19 11:58 Immature Gran % (Auto) 0.20 % (0.001-0.429) 08/24/19 11:58 Immature Gran # (Auto) 0.02 K/mm3 (0.000-0.0310) 08/24/19 11:58 52.9 % (42-75.0) 08/24/19 11:58 34.9 % (20-51) 08/24/19 11:58 8.5 % (0.0-9) 08/24/19 11:58 2.7 % (0.0-3.0) 08/24/19 11:58 0.8 % (0.0-1.0) 08/24/19 11:58 Nucleated RBC % 0.0 k/mm3 (0-1) 08/24/19 11:58 4.7 K/mm3 (1.3-6.0) 08/24/19 11:58 3.08 k/mm3 (1.5-3.5) 08/24/19 11:58 0.8 k/mm3 (0.0-1.0) 08/24/19 11:58 0.2 k/mm3 (0.0-0.7) 08/24/19 11:58 Absolute Basophils 0.1 k/mm3 (0.0-0.1) 08/24/19 11:58 PT 15.4 Seconds (9.1-10.7) H 08/24/19 11:58 INR (Anticoag Therapy) 1.58 INR (0.92-1.08) H 08/24/19 11:58 PTT ([place]) 28.8 Seconds (24-32) D 08/24/19 11:58 Sodium 142 mmol/L (132-142) 08/24/19 11:58 142 mmol/L (130-142) 08/24/19 11:58 Potassium 4.0 mmol/L (3.4-4.6) D 08/24/19 11:58 Chloride 103 mmol/L (97-106) 08/24/19 11:58 Carbon Dioxide 31.4 mmol/L (24-32.6) 08/24/19 11:58 11.6 mmol/L (6.8-13.8) 08/24/19 11:58 BUN 16 mg/dL (3-23) D 08/24/19 11:58 0.78 mg/dL (0.4-1.4) 08/24/19 11:58 Est GFR (Non-Af Amer) 81 mL/min (60-130) D 08/24/19 11:58 20.5 (9.0-21.6) 08/24/19 11:58 86 mg/dL (70-110) 08/24/19 11:58 Calcium 8.8 mg/dL (7.9-10.9) 08/24/19 11:58 Calcium Adj for Albumin 9.0 mg/dL (8.4-10.2) 08/24/19 11:58 0.4 mg/dL (0.0-1.1) 08/24/19 11:58 AST 43 U/L (0-48) 08/24/19 11:58 ALT 27 U/L (19-67) 08/24/19 11:58 60 U/L (50-170) 08/24/19 11:58 B-Natriuretic Peptide 242 pg/mL (5-205) H 08/24/19 11:58 7.9 gm/dL (6.2-8.2) 08/24/19 11:58 3.4 gm/dl (3.4-5.0) 08/24/19 11:58 Assessment/Plan - Narrative Narrative: Michelle is a 53 yo female with multiple pulmonary emboli and dyspnea. Her oxygen is borderline normal at 89-91%. Will admit to observation and monitor respiratory status overnight. No oxygen needed at this time. She does not like the idea of lovenox injections and does not like the idea of monthly blood draws for INR. Will discontinue Coumadin and Lovenox and start Eliquis 10mg BID x 7 days and then 5mg BID for 6 months total. If her respiratory status is not compromised overnight, she may be discharged to home. - Assessment/Plan (1) Dyspnea Problem: Acute Qualifiers: (2) Multiple pulmonary emboli Problem: Acute
[2019-08-25] MEDS ORDERED: LEVOTHYROXINE SODIUM 150 MCG TABLET PO SCH (07:00)
[2019-08-25 07:30] VITALS: BP 118/53
[2019-08-25] MEDS: ACETAMINOPHEN 500 MG TABLET PO PRN (08:03)
[2019-08-25] MEDS: GABAPENTIN 300 MG CAPSULE PO SCH (08:05)
[2019-08-25] MEDS: POTASSIUM CHLORIDE 10 MEQ TABLET.SA PO SCH (08:05)
[2019-08-25] MEDS ORDERED: CHOLECALCIFEROL 1,000 UNIT CAPSULE PO SCH (09:00)
[2019-08-25] MEDS ORDERED: COLESTIPOL HCL 1 G TABLET PO SCH (09:00)
[2019-08-25] MEDS ORDERED: FUROSEMIDE 40 MG TABLET PO SCH (09:00)
[2019-08-25] MEDS ORDERED: SPIRONOLACTONE 25 MG TABLET PO SCH (09:00)
[2019-08-25] MEDS ORDERED: METOPROLOL SUCCINATE 25 MG TABLET.SA PO SCH (09:00)
[2019-08-25] MEDS ORDERED: APIXABAN 5 MG TABLET PO SCH (09:00)
[2019-08-25] MEDS ORDERED: SERTRALINE HCL 100 MG TABLET PO SCH (09:00)
[2019-08-25] MEDS ORDERED: CYANOCOBALAMIN 1,000 MCG TABLET PO SCH (09:00)
--- NOTE | 2019-08-25 10:27 | DS ---
(1) Multiple pulmonary emboli Problem: Acute (2) Dyspnea Problem: Acute Qualifiers: Dyspnea type: shortness of breath Date of Discharge:: 08/25/19 Description of Stay: Michelle is a 53 yo female admitted for shortness of breath with recent diagnosed pulmonary emboli. Her heart rate was in the 40's on metoprolol succinate 75mg daily and she was subtherapeutic on her coumadin and did not want to take Lovenox. Her oxygen was 89-91% in the ER and therefore she was admitted to observation to monitor her respiratory status with multiple pulmonary embolisms. She was monitored overnight and oxygen stayed >90%. She was given duoneb and changed from Coumadin to Eliquis as she did not like the idea of coming in for bloodwork to check her INR. It was also discussed that with the Eliquis she would not have to do the lovenox, as she would on the coumadin until her INR was >2. In the hospital her pulse remained in the 40's. I will decrease her metoprolol to 25mg daily. She will be sent home on this and the eliquis for 6 months for treatment of pulmonary embolisms. Procedures Performed: none Results and Findings: Lab Pending Results 08/24/19 11:58: WBC 8.8, RBC 4.43, Hgb 14.1, Hct 42.6, MCV 96.2, MCH 31.8 H, MCHC 33.1, RDW 13.2, Plt Count 269, MPV 10.1, Immature Gran % (Auto) 0.20, Immature Gran # (Auto) 0.02, Neutrophils % 52.9, Lymphocytes % 34.9, Monocytes % 8.5, Eosinophils % 2.7, Basophils % 0.8, Nucleated RBC % 0.0, Neutrophils # 4.7, Lymphocytes # 3.08, Monocytes # 0.8, Eosinophils # 0.2, Absolute Basophils 0.1 08/24/19 11:58: PT 15.4 H, INR (Anticoag Therapy) 1.58 H, PTT (Dickens) 28.8 D 08/24/19 11:58: Sodium 142, Plasma Sodium 142, Potassium 4.0 D, Chloride 103, C arbon Dioxide 31.4, Anion Gap 11.6, BUN 16 D, Creatinine 0.78, Est GFR (Non-Af Amer) 81 D, BUN/Creatinine Ratio 20.5, Random Glucose 86, Calcium 8.8, Calcium Adj for Albumin 9.0, Total Bilirubin 0.4, AST 43, ALT 27, Alkaline Phosphatase 60, B-Natriuretic Peptide 242 H, Total Protein 7.9, Albumin 3.4 Discharge Location: Home Disposition: Home self-care Condition: Good Discharge Activity: Activity as tolerated Discharge Diet: General/regular food Referrals: Eva Shine, [facility] [Primary Care Provider] - One Week Problem Oriented Discharge Instructions to Patient/Family: Pulmonary Embolism Prescriptions (Any new or edited meds): Apixaban [Eliquis] 10 mg PO BID #66 tab Metoprolol Succinate [Toprol Xl] 25 mg PO DAILY #30 tablet. Complete Home Medications List: Complete Home Medication List: Sertraline HCl [Zoloft] 100 mg PO DAILY 10/27/12 Colestipol HCl [Colestid] 1 g PO DAILY 05/29/15 Gabapentin 300 mg PO TID 05/29/15 Omeprazole [Prilosec] 20 mg PO DAILY PRN 05/29/15 Baclofen 20 mg PO HS 11/06/16 Cholecalciferol [Vitamin D] 1,000 unit PO DAILY 11/06/16 Cyanocobalamin (Vitamin B-12) [Vitamin B-12] 500 mg PO DAILY 11/06/16 Fexofenadine HCl [Kylah Allergy] 180 mg PO DAILY PRN 11/06/16 Levothyroxine Sodium [Synthroid] 150 mcg PO DAILY 11/06/16 Furosemide [Lasix] 40 mg PO DAILY 08/19/19 Metoprolol Succinate 75 mg PO HS 08/19/19 Acetaminophen [Tylenol] 500 mg PO Q4H PRN tab 08/21/19 Ondansetron [Zofran Odt] 8 mg PO Q6H PRN #30 tab.rapdis 08/21/19 Potassium Chloride [Klor-Con 10] 10 meq PO BIDWM #30 tablet. 08/21/19 Spironolactone [Aldactone] 50 mg PO DAILY #30 tab 08/21/19 Apixaban [Eliquis] 10 mg PO BID #66 tab 08/25/19 Metoprolol Succinate [Toprol Xl] 25 mg PO DAILY #30 tablet. 08/25/19
== END 2019-08-25 11:00 | disposition home or self-care (01) ==
LOC: MS 11:22 → ER 11:22 → MS 13:18
PROVIDERS: ADMIT Family Medicine; ATTEND Family Medicine
CPT/HCPCS: 36415; 71020; 71046; 80053; 83519; 83880; 85025; 85610; 85730; 90686; 93005; 94640; 94660; 94664; 96372; 99285; G0008; G0378